=== PATIENT | male | born 1995 | race Caucasian/White ===

== ENCOUNTER 2022-05-19 08:58 | Emergency (ER) | payer OTHER ==
[~2022-05-19] VITALS: Ht 190.5 cm; Wt 167.4 kg
[2022-05-19 09:10] VITALS: BP_SYST 121
[2022-05-19] MEDS ORDERED: EPINEPHRINE HCL/PF 1 MG/ML AMP IM ONE (09:15)
[2022-05-19] MEDS ORDERED: EPIN0.3P3 IM (09:53)
[2022-05-19] MEDS ORDERED: DIPH25TA62 PO (09:53)
[2022-05-22] MEDS ORDERED: ALPR0.5T PO ×3 (14:47→14:54)
== END 2022-05-19 10:14 | disposition home or self-care (01) ==
LOC: SED 08:58
DX: L23.9 Allergic contact dermatitis, unspecified cause (principal)
CPT/HCPCS: 99283; 96372; J0171

== ENCOUNTER 2022-05-19 22:28 | Observation (INO) | payer OTHER ==
[~2022-05-19] VITALS: Ht 188 cm; Wt 164.7 kg
[~2022-05-19 22:28] MED LIST: DIPH25TA62 PO; EPIN0.3P3 IM
[2022-05-19 22:35] VITALS: BP_SYST 155
--- NOTE | 2022-05-19 22:40 | NUR ---
PT from home with c/o skin rash that started 2 days ago, rash on torso, legs and arms. Pt states he feel like the bandaids he has on is causing the rash. Pt had recent gastric sleeve sx. Pt reports being SOB, pt speaking in full sentences, O2 SAT 94% on RA. Pt noticable anxious. Hypertensive at 155/109
--- NOTE | 2022-05-19 22:55 | NUR ---
Patient to ER bed 08 to gown for evaluation. Side rails up. Report given to Flor MURGUIA.
--- NOTE | 2022-05-20 00:17 | NUR ---
CHARLES Rider at bedside examining patient.
[2022-05-20] MEDS ORDERED: FAMOTIDINE PF 20 MG/2 ML VIAL IVP ONE (00:45)
[2022-05-20] MEDS ORDERED: methylPREDNISolone SOD SUCC/PF 62.5 MG/ML VIAL IVP ONE (00:45)
[2022-05-20] MEDS ORDERED: DIPHENHYDRAMINE INJ 50 MG/ML VIAL IM ONE (00:45)
[2022-05-20 01:13] LABS: MONOCYTES # (AUTO) 0.7 K/uL (0.0-1.0); RED CELL DISTRIBUTION WIDTH 12.9 % (9.0-15.0)
[2022-05-20 01:15] LABS: CALCIUM 9.5 mg/dL (8.4-11.0); CREATININE 1.18 mg/dL (0.55-1.30); POTASSIUM 3.6 mmol/L (3.5-5.1)
[2022-05-20 01:18] LABS: BASOPHILS % (AUTO) 0.4 % (0.0-2.0); EOSINOPHILS # (AUTO) 0.1 K/uL (0.0-0.4); EOSINOPHILS % (AUTO) 1.2 % (0.0-4.0); LYMPHOCYTES # (AUTO) 1.6 K/uL (1.0-5.5); LYMPHOCYTES % (AUTO) 14.5 % (20.5-51.5); MEAN CORPUSCULAR VOLUME 87 fL (79.0-98.0); NEUTROPHILS # (AUTO) 8.5 K/uL (1.8-7.7); NEUTROPHILS % (AUTO) 77.9 % (40.0-70.0); PLATELET COUNT (AUTO) 454 K/uL (130-430); RED BLOOD CELL COUNT(AUTO) 5.51 MIL/uL (4.2-6.2); WHITE BLOOD COUNT (AUTO) 10.9 K/uL (4.8-10.8)
[2022-05-20 01:21] LABS: ALBUMIN 3.6 g/dL (3.4-4.8); TOTAL BILIRUBIN 0.9 mg/dL (0.0-1.0)
[2022-05-20 02:38] LABS: ERYTHROCYTE SEDIMENTATION RATE 54 MM/HR (0-15)
--- NOTE | 2022-05-20 04:13 | NUR ---
COVID SWAB OBTAINED AND TAKEN TO THE LAB. TOLERATED WELL.
[2022-05-20] MEDS ORDERED: ACETAMINOPHEN 325 MG TABLET PO PRN (05:15)
--- NOTE | 2022-05-20 05:23 | NUR ---
Admit bed requested Patient will be admitted to care of Admitted to MS unit. Diagnosis Graves Jem rash Inpatient (Yes or No) no Observation (Yes or No) yes Orientation concerns or request close to nursing station (Yes or No) no Covid Status negative On vent or bipap no Isolation requirements no Needs a sitter no From Home (Yes or if No enter name of facility) yes Requires Dialysis (Yes or No) no Med Rec Completed (Yes of No) yes
--- NOTE | 2022-05-20 05:53 | NUR ---
Patient will be admitted to care of Dr Patel. Admitted to MS/OBS unit. Will go to room 122A. Complete and up to date summary report printed. Report given to SHANTAL Watkins with opportunity for questions.
[2022-05-20] MEDS ORDERED: methylPREDNISolone SOD SUCC/PF 62.5 MG/ML VIAL IVP SCH (06:00)
[2022-05-20 07:00] VITALS: BP_SYST 125
--- NOTE | 2022-05-20 07:25 | NUR ---
receive the patient from the shift supervisor rn RN isac in a stable condition with admitting diagnosis eliana nelia's disease Aox4 . no sign and symptoms of respiratory distress , no complain of pain . will continue to monitor .
--- NOTE | 2022-05-20 08:33 | NUR ---
admitted the patient on medical surgical unit
--- NOTE | 2022-05-20 08:47 | NUR ---
CONSULT ID NATACHA STONER [phone] S/W CHRISTO LEE
--- NOTE | 2022-05-20 10:30 | NUR ---
md kelley made rounds . remove the bandages from the gastric sleeve procedure on the patient's . change to surgical tape to avoid allergies
[2022-05-20] MEDS: FAMOTIDINE PF 20 MG/2 ML VIAL IVP SCH (15:55)
[2022-05-20] MEDS: HYDROCORTISONE SOD SUCC 100 MG/2 ML VIAL IVP SCH ×2 (15:56→20:00)
--- NOTE | 2022-05-20 17:16 | NUR ---
patient requested for Lexapro 10 mg at HS from Md kelley . noted and carried out
--- NOTE | 2022-05-20 18:17 | NUR ---
will endorse to plant operator/shift supervisor RN for continuity of care
--- NOTE | 2022-05-20 19:15 | NUR ---
OPENING NOTE REPORT RECEIVED FROM DAYSHIFT NURSE. PATIENT RECEIVED LYING IN BED, AWAKE, WATCHING VIDEOS ON HIS PHONE. NO S/S OF ACUTE DISTRESS. NO SIGNS OF ALLERGIC REACTION. BREATHING EVEN AND UNLABORED. DENIES PAIN OR SOB. IV SITE PATENT, NO SIGNS OF INFILTRATION OR INFECTION NOTED. CALL LIGHT WITH PATIENT, DEMONSTRATED BACK PROPER USE. BED IS LOCKED AND AT LOWEST POSITION. WILL CONTINUE TO MONITOR.
[2022-05-20 20:00] VITALS: BP_SYST 127
[2022-05-20] MEDS: CITALOPRAM HYDROBROMIDE 20 MG TABLET PO SCH (20:12)
--- NOTE | 2022-05-20 23:00 | NUR ---
ROUNDS PATIENT ASLEEP, NO SIGNS OF DISCOMFORT. ALL NEEDS MET. WILL CONTINUE TO MONITOR.
[2022-05-21] VITALS: BP_SYST 118
[2022-05-21] MEDS: DIPHENHYDRAMINE INJ 50 MG/ML VIAL IVP SCH ×2 (00:27→23:35)
[2022-05-21] MEDS: HYDROCORTISONE SOD SUCC 100 MG/2 ML VIAL IVP SCH ×3 (03:23→21:00)
--- NOTE | 2022-05-21 03:23 | NUR ---
REFUSED MED PATIENT REFUSING SCHEDULED MEDICATION. EDUCATED ON ITS PURPOSE AND BENEFITS, PATIENT STILL REFUSES.
--- NOTE | 2022-05-21 06:30 | NUR ---
CLOSING NOTE PATIENT IN BED, RESTING. NO S/S OF ACUTE DISTRESS. BREATHING IS EVEN AND UNLABORED. IV SITE PATENT, NO SIGNS OF INFILTRATION OR INFECTION NOTED. ALL NEEDS MET THROUGHOUT SHIFT. FALL, SAFETY PRECAUTIONS MAINTAINED THROUGHOUT SHIFT. WILL CONTINUE TO MONITOR.
--- NOTE | 2022-05-21 07:02 | NUR ---
receive the patient from the night RN in a stable condition Piter . will continue to monitor
[2022-05-21 08:00] VITALS: BP_SYST 114
[2022-05-21 08:17] LABS: BASOPHILS % (AUTO) 0.2 % (0.0-2.0); EOSINOPHILS % (AUTO) 0.4 % (0.0-4.0); HEMATOCRIT 47.6 % (36-54); LYMPHOCYTES # (AUTO) 2.1 K/uL (1.0-5.5); LYMPHOCYTES % (AUTO) 20.7 % (20.5-51.5); MEAN CORPUSCULAR VOLUME 87 fL (79.0-98.0); MONOCYTES # (AUTO) 0.7 K/uL (0.0-1.0); MONOCYTES % (AUTO) 7.3 % (1.7-9.3); NEUTROPHILS # (AUTO) 7.3 K/uL (1.8-7.7); NEUTROPHILS % (AUTO) 71.4 % (40.0-70.0); PLATELET COUNT (AUTO) 473 K/uL (130-430); RED BLOOD CELL COUNT(AUTO) 5.47 MIL/uL (4.2-6.2); RED CELL DISTRIBUTION WIDTH 13.1 % (9.0-15.0); WHITE BLOOD COUNT (AUTO) 10.3 K/uL (4.8-10.8)
[2022-05-21 08:37] LABS: CALCIUM 9.3 mg/dL (8.4-11.0); CREATININE 1.17 mg/dL (0.55-1.30); POTASSIUM 3.5 mmol/L (3.5-5.1)
[2022-05-21] MEDS: FAMOTIDINE PF 20 MG/2 ML VIAL IVP SCH (09:46)
--- NOTE | 2022-05-21 10:03 | NUR ---
receive a call from MD Ospina infectious MD reporting that the patient has develop rashes on the palm and sole . MD recommended the patinet need to take benadryl , steroids Md also order Immunoglobulin E to check patient allergies .
--- NOTE | 2022-05-21 10:30 | NUR ---
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
--- NOTE | 2022-05-21 12:00 | NUR ---
patient complain feeling warm after the rn gave solumedrol . vital signs were check . all vitals are within normal limits
--- NOTE | 2022-05-21 18:45 | NUR ---
Dietitian Recommendations * Consider advance to full liquid if/when medically appropriate * Recommend daily MVI, B12, thiamine, iron, calcium s/p gastric sleeve * Prosource 4x per day while on liquid diet Please refer to nutrition assessment for details, thanks! CC, MPH, RDN
--- NOTE | 2022-05-21 19:09 | NUR ---
will enforse to sports internship RN for continuity of care
[2022-05-21] MEDS: CITALOPRAM HYDROBROMIDE 20 MG TABLET PO SCH (21:00)
[2022-05-21 23:17] VITALS: BP_SYST 119
[2022-05-22 05:30] VITALS: BP_SYST 115
[2022-05-22] MEDS: HYDROCORTISONE SOD SUCC 100 MG/2 ML VIAL IVP SCH ×2 (06:00→12:00)
--- NOTE | 2022-05-22 07:28 | NUR ---
receive the pt from the overnight cashier SHANTAL Linares in a stable condition . no complain of pain . no sign and symptoms of respiratory distress . will continue monitor
[2022-05-22 08:00] VITALS: BP_SYST 124
--- NOTE | 2022-05-22 09:01 | NUR ---
Md ospina called for updates . informed the Md patient has some rashes on left arm . was told by the Md Ospina to be discharge tomorrow instead of today
[2022-05-22] MEDS ORDERED: ALPR0.5T PO ×4 (14:47→14:54)
[2022-05-22 15:35] VITALS: BP_SYST 125
--- NOTE | 2022-05-22 16:24 | NUR ---
the rn were not able to print discharge papers because there were some narcotics orders by the MD which are duplicate . Called md Patel said he will be back not until 19:00 . the help of the pharmacist was seek , but only can amend the medication reconciliation . was ask the help of the charge nurse . have the patient sign on the front page of the printed discharge instructions papers .and also instructed the patient after 18:00 pm to verify the order . the rn made a copy of the signed papers by the cony , placed it on the patient's chart the patient stated he has still have the medication in his home . discharge the patient with the father to the lobby to a waiting private car
--- NOTE | 2022-05-22 17:23 | NUR ---
remove id band iv . discharge the patient im a stable condition
--- NOTE | 2022-05-22 20:58 | NUR ---
AT 2044 EXPERIENCE PLANNING STRATEGIST CALLED AND STATED PT GILBERTO CALLED FROM HOME AND STATED HE DIDNT RECEIVED HIS DC MEDICATIONS FROM THE [facility] , HOUSE SUP. ASKED ME TO CALL THE PATIENT AND PROVIDED PHONE NO [phone] , I CALLED AND TALKED TO THE PT, PT STATED BECAUSE OF DUPLICATION HE DIDNT RECEIVE HIS MEDICATION FROM THE PHARMACY , HE NOTIFIED DAY SHIFT ALREADY AND STILL UNABLE TO GET HIS MEDICATION . PT STATED HE" KEEPS BREAKING INTO HIVES "HE TOOK BENADRYL BUT IT DIDNT HELP HIM . HE SAID IF THE DR COULDNT ABLE TO GIVE THE MEDICATION HE MIGHT HAVE TO TAKE EPIPEN . I ENCOURAGED PT TO GO TO ER, SINCE HE IS HAVING HIVES ,AND PHARMACY MIGHT BE C;LOSED EVEN IF MD IS ABLE TO CORRECT HIS MEDICATION LIST ,BUT PT STATED HE DOESNT WANT TO GO TO ER AGAIN AND IF HE CAN GET HIS MEDICATION IT SHOULD HELP HIM . HE STATED HE DOESNT HAVE ANY SOB OR ANY OTHER SYMPTOMS , AND THE HIVES STARTED 2 HRS AGO AND ITS THE SAME . I INFORMED HIM THAT I WILL CONTACT DR DUNNE AND LET HIM KNOW WHAT SAYS.AGAIN I ENCOURAGED PT TO GO TO ER . I CALLED DR DUNNE AND NOTIFIED THE SITUATION . ASKED ME FOR PTS PHONE NO AND STATED HE WILL CONTACT THE PT . I GAVE PTS PHONE NO . I CALLED AND NOTIFIED THE PT THAT DR DUNNE WILL CALL HIM , AND AGAIN ENCOURAGED PT TO GO TO ER .PT AGAIN STATED HE HAS HIS "EPIPEN IN HAND " .
== END 2022-05-22 23:06 | disposition home or self-care (01) ==
LOC: SED 22:28 → SMU 05-20 05:22 → SED 05-20 05:53
PROVIDERS: ADMIT Internal Medicine; ATTEND Internal Medicine
DX: L27.0 Generalized skin eruption due to drugs and medicaments taken internally (principal); Z20.822 Contact with and (suspected) exposure to COVID-19; D72.0 Genetic anomalies of leukocytes; E66.01 Morbid (severe) obesity due to excess calories; T36.1X5A Adverse effect of cephalosporins and other beta-lactam antibiotics, initial encounter; Z79.899 Other long term (current) drug therapy
CPT/HCPCS: 93005; 99285; 96372; 96374; 96375 ×2; 96376 ×3; 80053; 85025 ×2; 85651; 36415 ×2; 87426; 80048; 84145; 86592; J1200 ×2; J3490 ×3; J1720 ×3; J2930; G0378 ×3; 82785; 86738